=== PATIENT | female | born 1980 | race Caucasian/White ===

== ENCOUNTER 2024-04-26 10:04 | Outpatient (CLI) | payer MEDICAID ==
[~2024-04-26 10:04] MED LIST: TOP25T PO
== END 2024-04-26 23:59 | disposition home or self-care (01) ==
LOC: RAD 10:04
PROVIDERS: ATTEND Family Medicine
DX: R07.9 Chest pain, unspecified (principal); Z90.49 Acquired absence of other specified parts of digestive tract
CPT/HCPCS: 71250

== ENCOUNTER 2024-07-26 08:13 | Outpatient (CLI) | payer MEDICARE, MEDICAID ==
[~2024-07-26] VITALS: Ht 154.9 cm; Wt 93.9 kg
[2024-07-26] MEDS: albuterol 2.5 MG/3 ML nebule NEB PRN (08:44)
[2024-07-26 08:46] VITALS: PULSE 56; RESP 16; O2SAT 98
[2024-07-26 08:57] VITALS: PULSE 60; RESP 18
== END 2024-07-26 23:59 | disposition home or self-care (01) ==
LOC: RT 08:13
PROVIDERS: ATTEND Physician Assistant
DX: R06.02 Shortness of breath (principal)
CPT/HCPCS: 94060; 94760; J7030